=== PATIENT | male | born 1995 | race Caucasian/White ===

== ENCOUNTER 2020-11-01 04:00 | Emergency (ER) | payer MEDICAID ==
[~2020-11-01] VITALS: Ht 188 cm; Wt 64.8 kg
[2020-11-01 04:02] VITALS: BP 130/81
[2020-11-01] MEDS ORDERED: HYDROcodone/APAP 5/325 TABLET ONE (04:15)
[2020-11-01] MEDS ORDERED: HYDROcodone/APAP 5/325 TABLET PO ONE (04:30)
[2020-11-01] MEDS ORDERED: PLEASE ENTER ALLERGIES MC SCH (04:30)
== END 2020-11-01 06:14 | disposition home or self-care (01) ==
LOC: ED 04:30
DX: S60.222A Contusion of left hand, initial encounter (principal); M25.532 Pain in left wrist; F17.210 Nicotine dependence, cigarettes, uncomplicated; V00.131A Fall from skateboard, initial encounter; Y93.89 Activity, other specified; Y92.89 Other specified places as the place of occurrence of the external cause; Y99.8 Other external cause status
CPT/HCPCS: 29125; 99284; 99406